=== PATIENT | male | born 1950 | race Hispanic/Latino ===

== ENCOUNTER 2018-09-10 17:53 | Emergency (ER) | payer MEDICARE, OTHER ==
--- NOTE | 2018-09-10 19:08 | ED PDOC ---
Lower Extremity Pain/Injury Time Seen by Provider: 09/10/18 18:32 Chief Complaint (Nursing): Lower Extremity Problem/Injury Chief Complaint (Provider): Left foot and ankle pain History Per: Patient History/Exam Limitations: no limitations Onset/Duration Of Symptoms: Hrs (x5) Additional Complaint(s): Cecil Neal, a 68 year old male with no significant past medical history, presents to the ED with a left foot and ankle injury onset at 14:00 today. Patient states that a piece of metal fell approximately 3-4 feet onto his left foot and ankle. He reports that he could walk initially, however worsening pain prompted visit. Patient states that he cannot walk now on the affected extremity and rates the pain a 9/10. Patient states he had a fracture to his left foot when he was 19 years old that did not require surgical repair. No further medical complaints. PMD: [facility] Past Medical History Reviewed: Historical Data, Nursing Documentation, Vital Signs Vital Signs: Last Vital Signs Temp 98.8 F 09/10/18 18:25 Pulse 72 09/10/18 18:25 Resp 16 09/10/18 18:25 BP 156/87 H 09/10/18 18:25 Pulse Ox 98 09/10/18 18:25 - Medical History PMH: No Chronic Diseases - Surgical History Surgical History: Appendectomy - Family History Family History: States: Unknown Family Hx - Home Medications Home Medications: Ambulatory Orders Medication Instructions Recorded Acetaminophen [Acetaminophen 8 650 mg PO Q8 PRN #21 tablet.er 09/10/18 Hour] RX: Ibuprofen [Motrin Tab] 800 mg PO Q8 PRN #21 tab 09/10/18 - Allergies Allergies/Adverse Reactions: Allergies Allergy/AdvReac Type Severity Reaction Status Date / Time No Known Allergies Allergy Verified 09/10/18 18:29 Review of Systems ROS Statement: Except As Marked, All Systems Reviewed And Found Negative Musculoskeletal: Positive for: Foot Pain (left) Physical Exam - Reviewed Nursing Documentation Reviewed: Yes Vital Signs Reviewed: Yes - Physical Exam Comments: GENERAL APPEARANCE: Patient is awake, alert, oriented x 3, uncomfortable appearing SKIN: Warm, dry; (-) cyanosis. NECK: Supple ENT: Mucus membranes moist. Airway patent, (-) stridor. CHEST AND RESPIRATORY: (-) rales, (-) rhonchi, (-) wheezes; breath sounds equal bilaterally. HEART AND CARDIOVASCULAR: (-) irregularity LEFT ANKLE/FOOT: (+) diffuse tenderness to anterior ankle, talus, and proximal left foot, (+) mild erythema and faint ecchymosis to dorsum of left midfoot (-) swelling (-) palpable bony deformity (-) distal neurovascular deficit. No ROM at ankle secondary to pain (+) sensation and capillary refill intact. (-) calf tenderness NEURO AND PSYCH: Mental status as above. Speech: clear. (-) facial asymmetry - ECG O2 Sat by Pulse Oximetry: 98 (RA) Pulse Ox Interpretation: Normal Medical Decision Making Medical Decision Making: Time: 18:30 Initial Impression: acute ankle and foot pain, rule out fracture Initial Plan: --Toradol 30 mg IM --Zofran 4 mg --Left ankle x ray --Left foot xray --Re-evaluation 1919 Foot XR: (-) fracture as read by Maryam RAMIREZ Ankle XR: (-) fracture as read by Maryam RAMIREZ Consult placed to podiatry. Spoke to podiatry resident, Dr Umer Knowles, who is agreeable to evaluation in ED. 2004 Podiatry at bedside- see consult note. [address] scan of ankle/foot for further evaluation of occult fracture. CT w/o contrast ordered. 2229 Patient resting comfortably with no additional complaints. 2319 CT report follows EXAM: CT Ankle, left, without IV contrast. CLINICAL HISTORY: R/o fracture TECHNIQUE: Axial computed tomography images of the left ankle without intravenous contrast. 358.96 mGy-cm CONTRAST: Without COMPARISON: CR\SD\NC - FOOT LEFT 3 VIEWS ROUTINE - 09/10/2018 07:00 PM EST CR\SD\NC - ANKLE LEFT 3 VIEWS ROUTINE - 09/10/2018 07:00 PM EST FINDINGS: BONES: No acute fracture is evident. No aggressive appearing osseous lesion. No periosteal reaction evident. JOINTS: The joint spaces appear within normal limits. No dislocation. SOFT TISSUES: No radiopaque foreign body is seen. No soft tissue fluid collection. IMPRESSION: No acute abnormality evident on examination of the left ankle. Electronically signed on Sep 10, 2018 10:33:30 PM EST by: Niko Dobbs M.D., EVGENY Certified By [facility] Trained MRI and CT Specialist 2350 Repeat BP: 127/84 Per podiatry evaluation, patient to be discharged and can follow up outpatient with podiatry. Patient placed in mary bandage and surgical shoe by podiatry. RICE encouraged. Patient provided with crutches and instructed on crutch walking. Weight bearing as tolerated. On re-evaluation, patient reports improvement of symptoms. On exam, patient remains AAOx3, in no acute distress. Lungs clear to auscultation, cardiac RRR, repeat neuro exam shows no focal findings. Vitals stable. Lab/Diagnostic results d/w the patient in great detail. Diagnosis of acute ankle and foot pain, contusion d/w the patient. Based on history, exam and diagnostic results, plan will be for outpatient follow up with podiatry. Patient instructed to follow-up with pmd / referral provided / the clinic in 1- 2 days without fail. Advised to take medication as prescribed. Return to the emergency room at any time for any new or worsening symptoms. Patient states he fully agrees with and understands discharge instructions. States that he agrees with the plan and disposition. Verbalized and repeated discharge instructions and plan. I have given the patient opportunity to ask any additional questions. Scribe Attestation: Documented by Amy Mena, acting as a scribe for Bibi Francisco PA-C. Provider Scribe Attestation: All medical record entries made by the Scribe were at my direction and personally dictated by me. I have reviewed the chart and agree that the record accurately reflects my personal performance of the history, physical exam, medical decision making, and the department course for this patient. I have also personally directed, reviewed, and agree with the discharge instructions and disposition. Disposition - Clinical Impression Clinical Impression: Ankle pain, Foot pain, Contusion - Patient ED Disposition Is Patient to be Admitted: No Counseled Patient/Family Regarding: Studies Performed, Diagnosis, Need For Followup, Rx Given - Disposition Referrals: Barry Dejesus DPM [Staff Provider] - Disposition: Routine/Home Disposition Time: 23:58 Condition: IMPROVED Additional Instructions: WEIGHT BEARING TOLERATED. FOLLOW UP WITH PODIATRY WITHIN THE WEEK FOR FURTHER EVALUATION. The emergency medical care you received today was directed at your acute symptoms. If you were prescribed any medication, please fill it and take as directed. It may take several days for your symptoms to resolve. Return to the Emergency Department if your symptoms worsen, do not improve, or if you have any other problems. Please contact your doctor in 2 days for re-evaluation and follow up / or call one of the physicians/clinics you have been referred to that are listed on the Patient Visit Information form that is included in your discharge packet. Bring any paperwork you were given at discharge with you along with any medications you are taking to your follow up visit. Our treatment cannot replace ongoing medical care by a primary care provider (PCP) outside of the emergency department. Prescriptions: Acetaminophen [Acetaminophen 8 Hour] 650 mg PO Q8 PRN #21 tablet.er PRN Reason: Pain, Moderate (4-7) RX: Ibuprofen [Motrin Tab] 800 mg PO Q8 PRN #21 tab PRN Reason: Pain, Moderate (4-7) Instructions: Taking Care of Bruises, Muscle and Bone Pain (DC), Contusion (DC), How to Use an Elastic Bandage Forms: [employer] (Swedish) Print Language: SLOVAK - POA Present On Arrival: Falls Or Trauma
--- NOTE | 2018-09-10 20:32 | CP.PCM.CON ---
History of Present Illness - History of Present Illness History of Present Illness: Podiatry consult note for attending Dr. Dejesus: 68 year old male with no PMH, Seen and evaluated at the ED for a left foot and ankle pain and swelling. Patient states that a piece of metal about 15 lbs fell 3-4 feet onto his left foot and ankle anterioly and to the outer side. He reports that he could walk initially, however the pain got worse and he couldn't walk now Patient states that the pain is throbbing in nature. Patient states that the pain is 9/10 on VAS scale. He states that the pain reduced a lot by the pain medication he received at the ED. Patient states that his foot was inside the sneakers at first so he didn't see any swelling but after he took off the shoe he noticed that his left ankle became swollen from outside. Patient states he has had a fracture to his left foot at the level of the 3rd and 4th mets when he was 19 that was not surgically repaired. Patient denies any other pedal complaint at this time. He denies any tingling, numbness or burning sensation to his left foot and ankle. He denies any recent F/N/V/C or SOB. PMH: None. PSH: Appendectomy. Allergies: NKDA. Social Hx: Denies smoking, EtOH use or illicit drug use. Review of Systems - Review of Systems Review of Systems: As per HPI - Constitutional Constitutional: As Per HPI Past Patient History - Past Social History Smoking Status: Never Smoked - PSYCHIATRIC Hx Substance Use: No - SURGICAL HISTORY Hx Appendectomy: Yes Meds Home Medications: Home Medication List Medication Instructions Recorded Confirmed Type Acetaminophen [Acetaminophen 8 650 mg PO Q8 PRN #21 tablet.er 09/10/18 Rx Hour] Ibuprofen [Motrin Tab] 800 mg PO Q8 PRN #21 tab 09/10/18 Rx Allergies/Adverse Reactions: Allergies Allergy/AdvReac Type Severity Reaction Status Date / Time No Known Allergies Allergy Verified 09/10/18 18:29 Physical Exam - Constitutional Appears: Well, Non-toxic, No Acute Distress - Head Exam Head Exam: ATRAUMATIC, NORMOCEPHALIC - Extremities Exam Additional comments: LE focused exam: Vasc: DP/PT 2/4 b/l. Cap refill < 3 sec to all digits. Temp gradient warm to warm b/l. Moderate non pitting edema noted to the L foot at the level of the lateral malleolous. No erythema noted. Superficial small varicosities noted at the perimalleolar area b/l. Eccymosis noted at the L foot at the level of the lateral malleolous. Neuro: Gross and protective sensations are intact b/l. Derm: No open lesions. No clinical signs of active infection. Moderate non pitting edema noted to the L foot at the level of the lateral malleolous. No erythema noted. Eccymosis noted at the L foot at the level of the lateral malleolous. MSK: Tenderness on palpating the L lateral perimallolar area. Pain with plantar and dorsiflexion at left foot with plantarflexion > dorsiflexion. Pain with active ROM of the L foot with plantar flexion and eversion. Muscle power intact to all groups b/l but couldn't be assessed for plantar flexors at the left side due to pain and guarding. Hammer toes noted 1-5 b/l. B/L HAV. - Neurological Exam Neurological exam: Alert, Oriented x3 - Psychiatric Exam Psychiatric exam: Normal Affect, Normal Mood Results - Vital Signs Recent Vital Signs: Last Vital Signs Temp 98.8 F 09/10/18 18:25 Pulse 72 09/10/18 18:25 Resp 16 09/10/18 18:25 BP 156/87 H 09/10/18 18:25 Pulse Ox 98 09/10/18 20:07 Assessment & Plan - Assessment and Plan (Free Text) Assessment: 68 y/o M patient seen and evaluated in the ED for pain and swelling of the left ankle Sprain vs bruise vs fracture. Plan: - Patient seen and evaluated in the ED. - Plan discussed in details with attending Dr. Dejesus. - Charts and vitals reviewed; Afebrile - Left foot 3 views x-ray reviewed: No osseous fractures noted. - Left ankle 3 views x-ray reviewed: No osseous fractures noted. - CT scan left ankle: No osseous fractures noted. - bandage applied to the patient left ankle. - Dispensed pair of crutches. - Patient instructed bear weight as tolerated to his left LE and to ambulate using crutches. - Patient educated RICE protocol. - Patient instructed to use the pain medication prescribed to him by the ED doctor if he has pain. - Patient expressed verbal understanding. - Patient will follow up at Dr. Dejesus's Office. - Thank you for consulting podiatry service. - Date & Time Date: 09/10/18 Time: 20:40
[2018-09-11 01:01] VITALS: BP 127/84; PULSE 76; RESP 16; TEMP 98.5; O2SAT 98
--- NOTE | 2018-09-11 12:21 | RAD ---
Date of service: 09/10/2018 PROCEDURE: Left Foot Radiographs. HISTORY: r/o fracture COMPARISON: None. FINDINGS: BONES: Normal. No fracture. JOINTS: Flexion deformity of the 2nd through 5th digits. No evidence of arthritis. SOFT TISSUES: Normal. OTHER FINDINGS: None. IMPRESSION: No acute fracture.
--- NOTE | 2018-09-11 12:23 | RAD ---
Date of service: 09/10/2018 PROCEDURE: Left Ankle Radiographs. HISTORY: r/o fracture COMPARISON: None available. FINDINGS: BONES: Normal. No fracture. JOINTS: Normal. No osteoarthritis. Ankle mortise maintained. Talar dome intact SOFT TISSUES: Normal. OTHER FINDINGS: None. IMPRESSION: Normal left ankle radiographs.
--- NOTE | 2018-09-11 12:33 | CT ---
Date of service: 09/10/2018 PROCEDURE: CT left foot/ankle HISTORY: r/o ankle/foot fracture COMPARISON: TECHNIQUE: Not available 2.5 mm contiguous axial sections were acquired through the left foot and ankle. Sagittal and coronal images were reformatted from the axial scan. Total exam DLP: 358.96 mGy-cm. This CT exam was performed using 1 or more of the following dose reduction techniques: Automated exposure control, adjustment of the mA and/or kV according to patient size, and/or use of iterative reconstruction technique. FINDINGS: There is no acute fracture. No lytic or blastic osseous lesion is identified. Several small incidental accessory ossicles are identified. The joint spaces and articular surfaces are preserved. There are no articular erosions. There is no significant soft tissue abnormality identified. IMPRESSION: Unremarkable examination. No acute fracture identified. The preliminary findings for this examination were reported by [facility] at 10:33 p.m. on 09/10/2018. There is concurrence of this report with the preliminary findings.
== END 2018-09-11 00:17 | disposition home or self-care (01) ==
LOC: H.ER 17:53
DX: S90.02XA Contusion of left ankle, initial encounter (principal); W22.8XXA Striking against or struck by other objects, initial encounter; Y92.89 Other specified places as the place of occurrence of the external cause
CPT/HCPCS: 73610; 73630; 73700; 96372; 99285; J1885